=== PATIENT | male | born 1930 | race American Indian/Alaskan Native ===

== ENCOUNTER 2019-05-09 12:18 | Emergency (ER) | payer MEDICARE ==
--- NOTE | 2019-05-09 12:31 | Emergency Department Report ---
Blank Doc - Documentation Documentation: 88-year-old male that presents with complications of indwelling catheter. This initial assessment/diagnostic orders/clinical plan/treatment(s) is/are subject to change based on patient's health status, clinical progression and re- assessment by fellow clinical providers in the ED. Further treatment and workup at subsequent clinical providers discretion. Patient/guardians urged not to elope from the ED as their condition may be serious if not clinically assessed and managed. Initial orders include: 1- Patient sent to [facility] for further evaluation and treatment
--- NOTE | 2019-05-09 13:47 | Emergency Department Report ---
HPI - General Chief Complaint: Urogenital-Male Time Seen by Provider: 05/09/19 12:29 - HPI HPI: Room 24 The patient is an 88-year-old male presenting with a chief complaint of leaking around full catheter. 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 There has been no history of fever nausea or vomiting Location: [See above] Duration: [See above] Quality: [See above] Severity: [See above] Timing: [See above] Context: [See above] Modifying factors: [See above] Associated signs and symptoms: [see above] ED Past Medical Hx - Past Medical History Previous Medical History?: Yes Hx Hypertension: Yes Additional medical history: indwelling catheter - Surgical History Past Surgical History?: Yes Hx Pacemaker: Yes - Family History Family history: no significant - Social History Smoking Status: Former Smoker Substance Use Type: None ED Review of Systems ROS: Stated complaint: CATHETER Other details as noted in HPI Constitutional: denies: fever Gastrointestinal: denies: abdominal pain, nausea, vomiting Physical Exam - Physical Exam Vital Signs: Vital Signs 05/09/19 12:20 Temperature 97.5 F L Pulse Rate 66 Respiratory 17 Rate Blood Pressure 128/69 O2 Sat by Pulse 99 Oximetry Physical Exam: GENERAL: The patient is well-developed well-nourished male lying on stretcher not appearing to be in acute distress. [] HEENT: Normocephalic. Atraumatic. NECK: Supple. Trachea midline midline CHEST/LUNGS: There is no respiratory distress noted. ABDOMEN: There is no abdominal distention. SKIN: There is no diaphoresis. NEURO: The patient is awake and alert. The patient is cooperative. The patient is very hard of hearing. MUSCULOSKELETAL: There is no evidence of acute injury. ED Course Vital Signs 05/09/19 12:20 Temperature 97.5 F L Pulse Rate 66 Respiratory 17 Rate Blood Pressure 128/69 O2 Sat by Pulse 99 Oximetry ED Medical Decision Making - Differential Diagnosis needs larger Rodriges Critical care attestation.: If time is entered above; I have spent that time in minutes in the direct care of this critically ill patient, excluding procedure time. ED Disposition Clinical Impression: Rodriges catheter problem Disposition: DC-01 TO HOME OR SELFCARE Is pt being admited?: No Does the pt Need Aspirin: No Condition: Stable Instructions: Rodriges Catheter Placement and Care (ED) Additional Instructions: Return to the emergency department should you develop worsening symptoms, inability to tolerate food or liquids, high fever or any other concerns Referrals: your, urologist [Other] - 3-5 Days Time of Disposition: 13:47
[2019-05-09 14:07] VITALS: BP 134/67
== END 2019-05-09 14:08 | disposition home or self-care (01) ==
LOC: ED 12:18
DX: T83.098A Other mechanical complication of other urinary catheter, initial encounter (principal); I10 Essential (primary) hypertension; Z98.890 Other specified postprocedural states; Z87.891 Personal history of nicotine dependence
CPT/HCPCS: 51702; 99282